=== PATIENT | female | born 1990 ===

== ENCOUNTER 2018-05-14 18:25 | Emergency (ER) | payer MEDICAID ==
--- NOTE | 2018-05-14 19:49 | ED PDOC ---
History of Present Illness History of Present Illness: 28 year old female with no PMHx presents to the ED with fever, cough, and body aches. Patient states she has been having dry cough for a week and a half and nasal congestion associated sinus headaches onset one week. Patient has been taking OTC cold and flu medication with minimal improvement. She then developed a fever (either 100.4 or 104, patient is unsure) yesterday morning. Patient last took Tylenol yesterday evening. She has not taken any medications today because she has not felt febrile. Patient reports sore throats but is able to tolerate fluids. She has a decreased appetite but denies sick contacts, history of asthma or any other chronic medical conditions. Patient received a flu vaccine this season. She was treated approximately one month ago for bronchitis. PMD: none provided HPI: Influenza Time Seen by Provider: 05/14/18 19:02 Chief Complaint: Cough, Cold, Congestion Chief Complaint (Provider): Cough, Cold, Congestion History Per: Patient Exam Limitations: no limitations Onset/Duration Of Symptoms: Days (week and a half) Symptoms include: fever, headache, bodyaches, sore throat, cough, nasal congestion Past Medical History Reviewed: Historical Data, Nursing Documentation, Vital Signs Vital Signs: Last Vital Signs Temp 98.9 F 05/14/18 18:39 Pulse 84 05/14/18 18:39 Resp 18 05/14/18 18:39 BP 129/73 05/14/18 18:39 Pulse Ox 100 05/14/18 18:39 - Medical History PMH: No Chronic Diseases - Family History Family History: States: Unknown Family Hx - Home Medications Home Medications: Ambulatory Orders Medication Instructions Recorded Acetaminophen [Tylenol 325mg tab] 650 mg PO Q6 PRN 7 Days tab 05/14/18 Ibuprofen [Motrin Tab] 600 mg PO Q6 PRN 7 Days tab 05/14/18 Oseltamivir Phosphate [Tamiflu] 75 mg PO BID 5 Days capsule 05/14/18 - Allergies Allergies/Adverse Reactions: Allergies Allergy/AdvReac Type Severity Reaction Status Date / Time No Known Allergies Allergy Verified 05/14/18 18:38 Review of Systems ROS Statement: Except As Marked, All Systems Reviewed And Found Negative Constitutional: Positive for: Fever ENT: Positive for: Nose Congestion, Throat Pain Respiratory: Positive for: Cough Neurological: Positive for: Headache Physical Exam - Reviewed Nursing Documentation Reviewed: Yes Vital Signs Reviewed: Yes - Physical Exam Appears: Positive for: No Acute Distress Head Exam: Positive for: ATRAUMATIC, NORMOCEPHALIC Skin: Positive for: Normal Color, Warm, Dry Eye Exam: Positive for: EOMI, Normal appearance, PERRL ENT: Positive for: Pharyngeal Erythema. Negative for: Tonsillar Exudate Neck: Positive for: Normal Cardiovascular/Chest: Positive for: Regular Rate, Rhythm. Negative for: Murmur Respiratory: Positive for: Normal Breath Sounds. Negative for: Respiratory Distress Gastrointestinal/Abdominal: Positive for: Normal Exam, Soft. Negative for: Tenderness Extremity: Positive for: Normal ROM (upper and lower). Negative for: Pedal Jeff ma, Deformity Neurologic/Psych: Positive for: Alert, Oriented (x3) Medical Decision Making Medical Decision Making: Time: 1935 Plan: --rapid strep --influenza --mono --Flonase Time: 2120 --Labs reviewed, negative for mono, flu and strep. Patient given Tamiflu 75 PO x1. Patient is medically cleared for discharge home, return instructions given. Scribe Attestation: Documented by Tamra Gandara, acting as a scribe for Sarah Burrell PA-C Provider Scribe Attestation: All medical record entries made by the Scribe were at my direction and personally dictated by me. I have reviewed the chart and agree that the record accurately reflects my personal performance of the history, physical exam, medical decision making, and the department course for this patient. I have also personally directed, reviewed, and agree with the discharge instructions and disposition. - ECG O2 Sat by Pulse Oximetry: 100 (RA) Pulse Ox Interpretation: Normal Disposition - Clinical Impression Clinical Impression: Influenza - Disposition Referrals: Alexandra Palmer MD [Family Provider] - Disposition Time: 21:21 Condition: STABLE Additional Instructions: Return to ER if you develop trouble breathing. Take Tylenol and Ibuprofen for pain. Take Flonase for nasal congestion and Mucinex for cough. Avoid contact with others as you are very contagious. Get lots of rest and hydrate. Prescriptions: Acetaminophen [Tylenol 325mg tab] 650 mg PO Q6 PRN 7 Days tab PRN Reason: Pain, Moderate (4-7) Ibuprofen [Motrin Tab] 600 mg PO Q6 PRN 7 Days tab PRN Reason: Pain, Moderate (4-7) Oseltamivir Phosphate [Tamiflu] 75 mg PO BID 5 Days capsule Instructions: Flu, Adult (DC) Forms: [facility] (Thai), [facility] ED School/Work Excuse Print Language: INDIAN
[2018-05-14 21:38] VITALS: BP 129/82; PULSE 77; RESP 15; TEMP 98.6; O2SAT 98
== END 2018-05-14 21:39 | disposition home or self-care (01) ==
LOC: H.ER 18:25
DX: J11.1 Influenza due to unidentified influenza virus with other respiratory manifestations (principal)